=== PATIENT | female | born 1990 | race African-American/Black ===

== ENCOUNTER 2017-07-03 16:12 | Emergency (ER) | payer SELFPAY | END 2017-07-03 16:32 | disposition home or self-care (01) | LOC: ERS 16:12 | DX: M65.4 Radial styloid tenosynovitis [de Quervain] (principal) | CPT/HCPCS: 99282 ==

== ENCOUNTER 2018-09-06 16:08 | Emergency (ER) | payer SELFPAY | END 2018-09-06 17:00 | disposition home or self-care (01) | LOC: ERS 16:08 | DX: G44.209 Tension-type headache, unspecified, not intractable (principal) | CPT/HCPCS: 99281 ==

== ENCOUNTER 2018-12-27 22:36 | Emergency (ER) | payer SELFPAY ==
[2018-12-27 23:16] LABS: #Eosinphils 0.1 thou/uL (0.0-0.7); #Lymphocytes 2.8 thou/uL (1.20-3.40); #Monocytes 0.7 thou/uL (0.11-0.59); #Neutrophils 9.6 thou/uL (1.40-6.50); %Basophils 0.3 % (0.0-1.0); %Lymphocytes 21.2 % (21.0-51.0); %Monocytes 5.5 % (0.0-10.0); Hemoglobin 9.9 g/dL (12.0-16.0); Mean Corpuscular HGB CONC 34.4 g/dL (32.0-36.0); Mean Corpuscular Hemoglobin 25.3 pg (27.0-31.0); Mean Corpuscular Volume 73.4 fL (78.0-98.0); Mean Platelet Volume 8.4 fL (7.4-10.4); Platelet Count 360 thou/uL (130-400); RBC Distribution Width 16.1 % (11.5-14.5); Red Blood Cell (RBC) Count 3.91 mill/uL (4.20-5.40); White Blood Cell (WBC) Count 13.4 thou/uL (4.8-10.8)
[2018-12-27 23:25] LABS: Anion Gap 11 mmol/L (10-20); BUN (Urea Nitrogen) 10 mg/dL (7.0-18.7); Calc. Creatinine Clearance 0 mL/min (70-130); Calcium 9.4 mg/dL (7.8-10.44); Carbon Dioxide 20 mmol/L (22-29); Chloride 108 mmol/L (98-107); Estimated GFR-MDRD 78; Glucose 101 mg/dL (70-105); Potassium 3.9 mmol/L (3.5-5.1); Sodium 135 mmol/L (136-145)
[2018-12-27 23:32] LABS: Hypochromia SLIGHT = 6-15 cells (100X) (0-5/hpf); MDiff Complete? YES; Macrocytosis SLIGHT = 6-15 cells (100X) (0-5/hpf); Polychromasia SLIGHT = 2-3 cells (100X) (0-2/hpf); Target Cells SLIGHT = 2-5 cells (100X) (0-1/hpf)
[2018-12-27 23:50] LABS: Pregnancy Test - Urine (BHCG) Negative (Negative); Pregu Control Background? CLEAR/WHITE (CLR/WHITE); Pregu Control Bar Appear? YES (CONTROL BAR); Specific Gravity 1.011 (1.002-1.036)
[2018-12-28] LABS: Bacteria/HPF None Seen HPF (None Seen); Bilirubin Negative (Negative); Blood, Urine 3+ (Negative); Clarity Clear (Clear); Glucose, Urine (Dipstick) Normal (Negative); Leukocyte 25 Leu/uL (Negative); Nitrite Negative (Negative); Protein, Urine (Dipstick) 20 mg/dL (Neg-Trace); RBC/HPF Greater than 50 HPF (0-3); Squamous Epithelial 0-3 HPF (0-3); Urobilinogen Normal mg/dL (Less than 2)
== END 2018-12-28 00:19 | disposition home or self-care (01) ==
LOC: ERS 22:36
DX: N93.9 Abnormal uterine and vaginal bleeding, unspecified (principal); D64.9 Anemia, unspecified
CPT/HCPCS: 36415; 80048; 81003; 81015; 81025; 85025; 99284

== ENCOUNTER 2019-11-25 20:57 | Emergency (ER) | payer BC, SELFPAY | END 2019-11-25 22:30 | disposition home or self-care (01) | LOC: ERS 20:57 | DX: L02.811 Cutaneous abscess of head [any part, except face] (principal) | CPT/HCPCS: 99283 ==

== ENCOUNTER 2020-08-11 06:40 | Emergency (ER) | payer BC ==
[2020-08-11] MEDS ORDERED: Ketorolac Tromethamine 30 MG/ML VIAL ONE (06:50)
[2020-08-11] MEDS ORDERED: Metoclopramide HCl 10 MG/2 ML VIAL ONE (06:50)
[2020-08-11] MEDS ORDERED: Acetaminophen 500 MG TAB ONE (06:50)
[2020-08-11] MEDS ORDERED: Fentanyl 100 MCG/2 ML VIAL ONE (08:01)
[2020-08-11] MEDS ORDERED: Dexamethasone 10 MG/ML VIAL ONE (08:01)
== END 2020-08-11 08:44 | disposition home or self-care (01) ==
LOC: ERS 06:40
DX: R51.9 Headache, unspecified (principal); R29.700 NIHSS score 0
CPT/HCPCS: 94760; 96365; 96375; J1100; J1885; J2765; J3010

== ENCOUNTER 2021-06-07 13:56 | Emergency (ER) | payer BC, OTHER ==
[2021-06-07] MEDS ORDERED: Metoclopramide HCl 10 MG/2 ML VIAL ONE (16:01)
[2021-06-07] MEDS ORDERED: diphenhydrAMINE 50 MG/ML VIAL ONE (16:01)
[2021-06-07] MEDS ORDERED: Ketorolac Tromethamine 30 MG/ML VIAL ONE (16:01)
[2021-06-07 17:02] LABS: BHCG - Serum Negative (NEGATIVE); Pregs Control Background? CLEAR/WHITE (CLR/WHITE); Pregs Control Bar Appear? YES (CONTROL BAR)
[2021-06-07] MEDS ORDERED: Acetaminophen 500 MG TAB ONE ×2 (17:10→17:14)
[2021-06-07 23:06] LABS: SARS-CoV-2 PCR by NAA DETECTED (NotDetected)
== END 2021-06-07 18:24 | disposition home or self-care (01) ==
LOC: ERS 13:56
DX: U07.1 COVID-19 (principal)
CPT/HCPCS: 36415; 84703; 96374; 96375; J1200; J1885; J2765; U0003; U0005